=== PATIENT | female | born 2000 | race American Indian/Alaskan Native ===

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

== ENCOUNTER 2018-07-07 08:26 | Inpatient (IN) | payer MEDICAID ==
[2018-07-07] MEDS ORDERED: Carboprost Tromethamine 250 MCG/1 ML Amp IM PRN ×2 (08:46→14:53)
[2018-07-07] MEDS ORDERED: Sodium Chloride 0.9% 10 ML Syringe FLUSH PRN ×2 (08:46→14:53)
[2018-07-07] MEDS ORDERED: Acetaminophen 325 MG Tab PO PRN ×2 (08:46→14:53)
[2018-07-07] MEDS ORDERED: Lactated Ringers 500 ML IV ONE (08:46)
[2018-07-07] MEDS ORDERED: Lidocaine 1% 30 ML SDV INJECT PRN (08:46)
[2018-07-07] MEDS ORDERED: Misoprostol 400 MCG (4 X 100 MCG TAB) RECTAL PRN ×2 (08:46→14:53)
[2018-07-07] MEDS ORDERED: Tranexamic Acid 1,000 MG in Sodium Chloride 0.9% 100 ML IV PRN ×2 (08:46→14:53)
[2018-07-07] MEDS ORDERED: Ondansetron 4 MG/2 ML SDV IV PRN (08:46)
[2018-07-07] MEDS ORDERED: Methylergonovine 0.2 MG/1 ML Amp IM PRN (08:46)
--- NOTE | 2018-07-07 08:54 | PCM.LDHP ---
<Salina Ludwig - Last Filed: 07/07/18 08:57> L&D History of Present Illness - General Date of Service: 07/07/18 Admit Problem/Dx: Patient Status Order with Admit Dx/Problem 07/07/18 08:46 Patient Status [ADT] Routine Admission Diagnosis/Problem Admission Diagnosis/Problem Normal labor Source of Information: Patient - History of Present Illness Introduction:: Ketty is a 18 yo female at 40w3 days today who presents to L& D for regular contractions that started about 6am and are increasing in frequency and strength. Now about 5min apart. Feeling uncomfortable with them, low cramping. Some bloody show last week after her membranes were striped. Denies headache, vision change, LOF. Baby active. - Related Data Allergies/Adverse Reactions: Allergies Allergy/AdvReac Type Severity Reaction Status Date / Time amoxicillin Allergy Hives Verified 05/07/17 15:04 poison angella extract Allergy Cannot Verified 05/07/17 15:04 Remember Home Medications: Home Meds Vit No.129/Iron/FA [ One Daily Tablet] 1 tab PO DAILY 11/28/16 [History] Ferrous Sulfate [Iron] 325 mg PO DAILY 03/09/17 [History] Acetaminophen [Tylenol] 650 mg PO Q6H PRN tablet 05/09/17 [Rx] Docusate Sodium [Colace] 100 mg PO BID PRN cap 05/09/17 [Rx] Ibuprofen [IJD: Ibuprofen] 800 mg PO Q8H PRN tablet 05/09/17 [Rx] Past Medical History - Past Health History Medical/Surgical History: Denies Medical/Surgical History HEENT History: Reports: Impaired Vision Gastrointestinal History: 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 L&D Exam - Exam Exam: See Below - Vital Signs Vital Signs: Temp 97.5 BP122/66 P88 Wt 192 Hght 5'4" - OB Specific Movement: Active Heart Tones per Min: 140 (accels present, no decels) Heart Rate (FHR) Variability: Moderate (6-25 bmp) - Exam General: Alert, Oriented HEENT: Conjunctiva Clear Neck: Supple Lungs: Clear to Auscultation, Normal Respiratory Effort Cardiovascular: Regular Rate, Regular Rhythm, Normal S1, Normal S2 GI/Abdominal Exam: Non-Tender, Other (gravid) Genitourinary: Cervical dilitation (/-[address] Cox's exam) Extremities: Normal Inspection, No Pedal Edema Skin: Warm, Dry. No: Rash - Problem List (1) Normal labor SNOMED Code(s): 21117418 ICD Code: O80 - ENCOUNTER FOR FULL-TERM UNCOMPLICATED DELIVERY; Z37.9 - OUTCOME OF DELIVERY, UNSPECIFIED Status: Acute Current Visit: Yes (2) Term SNOMED Code(s): 65793046 ICD Code: Z34.80 - ENCOUNTER FOR SUPRVSN OF NORMAL , UNSP TRIMESTER Status: Acute Current Visit: Yes Problem List Initiated/Reviewed/Updated: Yes Orders Last 24hrs: Active Orders 24 hr Category Date Time Status Patient Status [ADT] Routine ADT 07/07/18 08:46 Ordered Communication Order [RC] ASDIRECTED Care 07/07/18 08:46 Ordered Heart Tones [RC] PER UNIT ROUTINE Care 07/07/18 08:46 Ordered Notify Provider Vital Signs OB [RC] ASDIRECTED Care 07/07/18 08:46 Ordered Notify Provider [RC] PRN Care 07/07/18 08:46 Ordered Pump Management, Intrathecal [RC] ASDIRECTED Care 07/07/18 08:48 Active Up ad Kelly [RC] ASDIRECTED Care 07/07/18 08:46 Ordered Vital Signs [RC] PER UNIT ROUTINE Care 07/07/18 08:46 Ordered CBC W/O DIFF,HEMOGRAM [HEME] Routine Lab 07/07/18 08:46 Ordered Acetaminophen [Tylenol] Med 07/07/18 08:46 Ordered 650 mg PO Q4H PRN Carboprost Tromethamine [Hemabate DS] Med 07/07/18 08:46 Ordered 250 mcg IM ASDIRECTED PRN Lactated Ringers @ 125 MLS/HR(1000ml) Med 07/07/18 09:00 Ordered Lactated Ringers [Ringers, Lactated] 1,000 ml IV ASDIRECTED Lactated Ringers [Ringers, Lactated] 500 ml Med 07/07/18 08:46 Ordered IV .BOLUS Lidocaine 1% [Xylocaine-MPF 1%] Med 07/07/18 08:46 Ordered 30 ml INJECT ASDIRECTED PRN Methylergonovine [Methergine] Med 07/07/18 08:46 Ordered 0.2 mg IM ASDIRECTED PRN Ondansetron [Zofran] Med 07/07/18 08:46 Ordered 4 mg IV Q4H PRN Oxytocin 30 Units in NS @ 2 MUNITS/MIN(500ml) Med 07/07/18 09:00 Ordered Oxytocin/Normal Saline [Pitocin in NS 30 UNIT/500 ML] 30 unit in 500 ml IV TITRATE Sodium Chloride 0.9% [Saline Flush] Med 07/07/18 08:46 Ordered 10 ml FLUSH ASDIRECTED PRN Tranexamic Acid [Cyklokapron] 1,000 mg Med 07/07/18 08:46 Ordered Sodium Chloride 0.9% [Normal Saline] 100 ml IV ONETIME miSOPROStol [Cytotec] Med 07/07/18 08:46 Ordered 800 mcg RECTAL ASDIRECTED PRN Saline Lock Insert [OM.PC] Routine Oth 07/07/18 08:46 Ordered Resuscitation Status Routine Resus Stat 07/07/18 08:46 Ordered Medication Orders Acetaminophen (Tylenol) 650 mg PO Q4H PRN PRN Reason: Pain (Mild 1-3) and fever Carboprost Tromethamine (Hemabate Ds) 250 mcg IM ASDIRECTED PRN PRN Reason: HEMORRHAGE Lactated Ringer's (Ringers, Lactated) 500 mls @ 999 mls/hr IV .BOLUS ONE Stop: 07/07/18 09:16 Lactated Ringer's (Ringers, Lactated) 1,000 mls @ 125 mls/hr IV ASDIRECTED CHARLIE Oxytocin/Sodium Chloride (Pitocin In Ns 30 Unit/500 Ml) 30 unit in 500 mls @ 2 mls/hr IV TITRATE CHARLIE; Protocol Tranexamic Acid 1,000 mg/ (Sodium Chloride) 110 mls @ 660 mls/hr IV ONETIME PRN PRN Reason: Bleeding Lidocaine HCl (Xylocaine-Mpf 1%) 30 ml INJECT ASDIRECTED PRN PRN Reason: Perineal Repair Methylergonovine Maleate (Methergine) 0.2 mg IM ASDIRECTED PRN PRN Reason: Hemorrhage Misoprostol (Cytotec) 800 mcg RECTAL ASDIRECTED PRN PRN Reason: Hemorrhage Ondansetron HCl (Zofran) 4 mg IV Q4H PRN PRN Reason: Nausea/Vomiting Sodium Chloride (Saline Flush) 10 ml FLUSH ASDIRECTED PRN PRN Reason: Keep Vein Open Assessment/Plan Comment:: Admit to L&D Expectant management may have intrathecal when desired plan to AROM in another hour or two staffed with Dr. Cox <Gayla Cox - Last Filed: 07/07/18 13:16> L&D History of Present Illness - General Admit Problem/Dx: Patient Status Order with Admit Dx/Problem 07/07/18 08:46 Patient Status [ADT] Routine Admission Diagnosis/Problem Admission Diagnosis/Problem Normal labor - Patient Data Lab Results Last 24 hrs: Laboratory Results - last 24 hr 07/07/18 Range/Units 09:05 WBC 13.3 H (5.0-10.0) 10^3/uL RBC 4.76 (4.2-5.4) 10^6/uL Hgb 10.4 L (12.0-16.0) g/dL Hct 32.9 L (37.0-47.0) % MCV 69.1 L D (80-100) fL MCH 21.8 L (27.0-34.0) pg MCHC 31.6 L (33.0-35.0) g/dL Plt Count 259 (150-450) 10^3/uL Result Diagrams: 07/07/18 09:05 Orders Last 24hrs: Active Orders 24 hr Category Date Time Status Patient Status [ADT] Routine ADT 07/07/18 08:46 Active Communication Order [RC] ASDIRECTED Care 07/07/18 08:46 Active Notify Provider Vital Signs OB [RC] ASDIRECTED Care 07/07/18 08:46 Active Notify Provider [RC] PRN Care 07/07/18 08:46 Active PCEA Epidural [RC] ASDIRECTED Care 07/07/18 10:00 Active Pump Management, Intrathecal [RC] ASDIRECTED Care 07/07/18 08:48 Active Up ad Kelly [RC] ASDIRECTED Care 07/07/18 08:46 Active Vital Signs [RC] PER UNIT ROUTINE Care 07/07/18 08:46 Active Acetaminophen [Tylenol] Med 07/07/18 08:46 Active 650 mg PO Q4H PRN Carboprost Tromethamine [Hemabate DS] Med 07/07/18 08:46 Active 250 mcg IM ASDIRECTED PRN Clindamycin Phosphate [Cleocin] 900 mg Med 07/07/18 10:00 Active Sodium Chloride 0.9% [Normal Saline] 100 ml IV Q8H Lactated Ringers [Ringers, Lactated] 1,000 ml Med 07/07/18 09:00 Active IV ASDIRECTED Lidocaine 1% [Xylocaine-MPF 1%] Med 07/07/18 08:46 Active 30 ml INJECT ASDIRECTED PRN Methylergonovine [Methergine] Med 07/07/18 08:46 Active 0.2 mg IM ASDIRECTED PRN Ondansetron [Zofran] Med 07/07/18 08:46 Active 4 mg IV Q4H PRN Oxytocin/Normal Saline [Pitocin in NS 30 UNIT/500 ML] Med 07/07/18 09:00 Active 30 unit in 500 ml IV TITRATE Sodium Chloride 0.9% [Saline Flush] Med 07/07/18 08:46 Active 10 ml FLUSH ASDIRECTED PRN Tranexamic Acid [Cyklokapron] 1,000 mg Med 07/07/18 08:46 Active Sodium Chloride 0.9% [Normal Saline] 100 ml IV ONETIME miSOPROStol [Cytotec] Med 07/07/18 08:46 Active 800 mcg RECTAL ASDIRECTED PRN Saline Lock Insert [OM.PC] Routine Oth 07/07/18 08:46 Ordered Resuscitation Status Routine Resus Stat 07/07/18 08:46 Ordered Medication Orders Acetaminophen (Tylenol) 650 mg PO Q4H PRN PRN Reason: Pain (Mild 1-3) and fever Carboprost Tromethamine (Hemabate Ds) 250 mcg IM ASDIRECTED PRN PRN Reason: HEMORRHAGE Lactated Ringer's (Ringers, Lactated) 1,000 mls @ 125 mls/hr IV ASDIRECTED CHARLIE Last Admin: 07/07/18 09:50 Dose: 125 mls/hr Oxytocin/Sodium Chloride (Pitocin In Ns 30 Unit/500 Ml) 30 unit in 500 mls @ 2 mls/hr IV TITRATE CHARLIE; Protocol Tranexamic Acid 1,000 mg/ (Sodium Chloride) 110 mls @ 660 mls/hr IV ONETIME PRN PRN Reason: Bleeding Clindamycin Phosphate 900 mg/ (Sodium Chloride) 106 mls @ 200 mls/hr IV Q8H [facility] Last Admin: 07/07/18 09:52 Dose: 200 mls/hr Lidocaine HCl (Xylocaine-Mpf 1%) 30 ml INJECT ASDIRECTED PRN PRN Reason: Perineal Repair Methylergonovine Maleate (Methergine) 0.2 mg IM ASDIRECTED PRN PRN Reason: Hemorrhage Misoprostol (Cytotec) 800 mcg RECTAL ASDIRECTED PRN PRN Reason: Hemorrhage Ondansetron HCl (Zofran) 4 mg IV Q4H PRN PRN Reason: Nausea/Vomiting Last Admin: 07/07/18 09:54 Dose: 4 mg Sodium Chloride (Saline Flush) 10 ml FLUSH ASDIRECTED PRN PRN Reason: Keep Vein Open Assessment/Plan Comment:: Agree with resident assessment and plan. Will give Clindamycin for GBS positive status. May AROM 2 hours after dose given. Anticipate . Gayla Cox MD
[2018-07-07] MEDS ORDERED: Oxytocin/Normal Saline 30 UNIT/500 ML BAG IV SCH (09:00)
[2018-07-07] MEDS: Lactated Ringers 1,000 ML IV SCH ×2 (09:50→13:46)
[2018-07-07] MEDS: Clindamycin Phosphate 900 MG in Sodium Chloride 0.9% 100 ML IV SCH ×2 (09:52→19:43)
[2018-07-07] MEDS ORDERED: ePHEDrine 50 MG/ML SDV IVPUSH ONE ×3 (10:00→13:30)
--- NOTE | 2018-07-07 10:24 | PCM.SN ---
- Free Text/Narrative Note: Intrathecal. Sitting position, sterile prep and drape. 1% lidocaine w bicarb for skinwheal to L2 L3 interspace, introducer, 24 ga pencan x 1. Pos CSF, neg heme, neg parasthesia. 15 mcg pf sufenta, 35 mcg pf fentanyl, 0.4 ml pf ns and 6 mg of 0.75 % pf bupivaciane injected after CSF aspiration. Pt to L lateral position. Procedure time 1000 to 1030
[2018-07-07] MEDS ORDERED: ePHEDrine 50 MG/ML SDV ONE (10:50)
--- NOTE | 2018-07-07 11:20 | PCM.SN ---
- Free Text/Narrative Note: 07/07/2018 1118 pt comfortable with intrathecal. no complaints resting comfortably, NAD FHT 140s, moderate variability, accels present, no decels cxn q 3-5 min cervix 6/100/-2, bulging bag 18yo in active labor GBS pos Clindamycin given about 0950 continue current cares Plan to AROM in 1-[address] adilene Ludwig, PGY3
--- NOTE | 2018-07-07 13:06 | PCM.SN ---
- Free Text/Narrative Note: Labor Progress note 07/07/18 1302 starting to feel cxns a bit more. no other complaints FHT category 1 cervix prior to AROM 7/100/-2 After AROM 8cm/100/-1 AROM for moderate amount of clear fluid. No complications. Baby tolerated procedure well. Staffed with Dr. Kenny Ludwig, PGY3
[2018-07-07] MEDS ORDERED: Benzocaine/Menthol 20%-0.5% Spray 56 GM Canister TOP PRN (14:53)
[2018-07-07] MEDS ORDERED: Oxytocin 10 Units/1 ML SDV IM PRN (14:53)
[2018-07-07] MEDS ORDERED: Simethicone 80 MG Tab.Chew PO PRN (14:53)
[2018-07-07] MEDS ORDERED: Zolpidem 5 MG Tab PO PRN (14:53)
[2018-07-07] MEDS ORDERED: Ketorolac 30 MG/ML SDV IVPUSH ONE (14:53)
--- NOTE | 2018-07-07 15:04 | PCM.DEL ---
<Salina Ludwig - Last Filed: 07/07/18 14:58> L & D Note - General Info Date of Service: 07/07/18 - Delivery Note Labor: Spontaneous, Augmented by ARM Delivery Outcome: Livebirth Delivery Method: Spontaneous Vaginal Delivery-Single Infant Delivery Mode: Spontaneous Presentation: Right Occiput Anterior (TUTU) Nuchal Cord: None Anesthesia Type: Intrathecal Amniotic Fluid Description: Clear Episiotomy Type: None Laceration: Periurethral (left not repaired) Placenta: Intact, Spontaneous Resuscitation Needed: No : Suctioned Score 1 min: 8 Score 5 min: 9 Delivery Comments (Free Text/Narrative):: patient presented in active labor. Received Clindamycin for GBS pos. Augmented by AROM. Progressed to complete without complication. head delivered spontaneously. No cord complications. Body delivered without incident. Baby vigorous to mom's chest. Placenta spontaneous and intact. left periurethral laceration not repaired. No perineal lacerations. good hemostasis. - General Info Date of Service: 07/07/18 - Patient Data Vitals - Most Recent: Last Vital Signs Temp 97.5 F 07/07/18 08:45 Pulse 88 07/07/18 08:45 Resp 16 07/07/18 08:45 BP 122/66 07/07/18 08:45 Pulse Ox Weight - Most Recent: 87.09 kg I&O - Last 24 Hours: Intake & Output 07/06/18 07/07/18 07/07/18 22:59 06:59 14:59 Intake Total 2100 Balance 2100 Lab Results Last 24 Hours: Laboratory Results - last 24 hr 07/07/18 Range/Units 09:05 WBC 13.3 H (5.0-10.0) 10^3/uL RBC 4.76 (4.2-5.4) 10^6/uL Hgb 10.4 L (12.0-16.0) g/dL Hct 32.9 L (37.0-47.0) % MCV 69.1 L D (80-100) fL MCH 21.8 L (27.0-34.0) pg MCHC 31.6 L (33.0-35.0) g/dL Plt Count 259 (150-450) 10^3/uL Med Orders - Current: Current Medications Acetaminophen (Tylenol) 650 mg PO Q4H PRN PRN Reason: Pain (Mild 1-3) and fever Acetaminophen (Tylenol) 650 mg PO Q6H PRN PRN Reason: mild pain or fever Benzocaine/Menthol (Dermoplast Pain Relief [place]) 0 gm TOP Q4H PRN PRN Reason: Perineal comfort measures Carboprost Tromethamine (Hemabate Ds) 250 mcg IM ASDIRECTED PRN PRN Reason: HEMORRHAGE Carboprost Tromethamine (Hemabate Ds) 250 mcg IM ASDIRECTED PRN PRN Reason: Excessive vaginal bleeding Docusate Sodium (Colace) 100 mg PO BID PRN PRN Reason: Constipation Lactated Ringer's (Ringers, Lactated) 1,000 mls @ 125 mls/hr IV ASDIRECTED [facility] Last Admin: 07/07/18 13:46 Dose: 125 mls/hr Oxytocin/Sodium Chloride (Pitocin In Ns 30 Unit/500 Ml) 30 unit in 500 mls @ 2 mls/hr IV TITRATE CHARLIE; Protocol Tranexamic Acid 1,000 mg/ (Sodium Chloride) 110 mls @ 660 mls/hr IV ONETIME PRN PRN Reason: Bleeding Clindamycin Phosphate 900 mg/ (Sodium Chloride) 106 mls @ 200 mls/hr IV Q8H [facility] Last Admin: 07/07/18 09:52 Dose: 200 mls/hr Tranexamic Acid 1,000 mg/ (Sodium Chloride) 110 mls @ 660 mls/hr IV ONETIME PRN PRN Reason: Bleeding Ibuprofen (Motrin) 800 mg PO Q8H PRN PRN Reason: Mild Pain or Fever Ketorolac Tromethamine (Toradol) 30 mg IVPUSH ONETIME ONE Stop: 07/07/18 14:54 Lidocaine HCl (Xylocaine-Mpf 1%) 30 ml INJECT ASDIRECTED PRN PRN Reason: Perineal Repair Methylergonovine Maleate (Methergine) 0.2 mg IM ASDIRECTED PRN PRN Reason: Hemorrhage Misoprostol (Cytotec) 800 mcg RECTAL ASDIRECTED PRN PRN Reason: Hemorrhage Misoprostol (Cytotec) 800 mcg RECTAL ONETIME PRN PRN Reason: Hemorrhage Ondansetron HCl (Zofran) 4 mg IV Q4H PRN PRN Reason: Nausea/Vomiting Last Admin: 07/07/18 09:54 Dose: 4 mg Oxytocin (Pitocin) 10 unit IM ONETIME PRN PRN Reason: Bleeding Prenat Multivit/[place]/Iron/Folic Ac ( Plus Iron) 1 each PO DAILY CHARLIE Simethicone (Simethicone) 80 mg PO Q4H PRN PRN Reason: Gas Sodium Chloride (Saline Flush) 10 ml FLUSH ASDIRECTED PRN PRN Reason: Keep Vein Open Sodium Chloride (Saline Flush) 10 ml FLUSH ASDIRECTED PRN PRN Reason: Keep Vein Open Zolpidem Tartrate (Ambien) 5 mg PO BEDTIME PRN PRN Reason: Insomnia Discontinued Medications Ephedrine Sulfate (Ephedrine Sulfate) Confirm Administered Dose 50 mg .ROUTE .STK-MED ONE Stop: 07/07/18 10:51 Ephedrine Sulfate (Ephedrine Sulfate) 100 mg IVPUSH ONETIME ONE Stop: 07/07/18 11:18 Ephedrine Sulfate (Ephedrine Sulfate) 10 mg IVPUSH ONETIME ONE Stop: 07/07/18 10:01 Last Admin: 07/07/18 10:57 Dose: 10 mg Ephedrine Sulfate (Ephedrine Sulfate) 10 mg IVPUSH ONETIME ONE Stop: 07/07/18 13:31 Lactated Ringer's (Ringers, Lactated) 500 mls @ 999 mls/hr IV .BOLUS ONE Stop: 07/07/18 09:16 Last Admin: 07/07/18 09:15 Dose: 999 mls/hr - Problem List & Annotations (1) Normal labor SNOMED Code(s): 70178227 Code(s): O80 - ENCOUNTER FOR FULL-TERM UNCOMPLICATED DELIVERY; Z37.9 - OUTCOME OF DELIVERY, UNSPECIFIED Status: Resolved (2) Term SNOMED Code(s): 87373327 Code(s): Z34.80 - ENCOUNTER FOR SUPRVSN OF NORMAL , UNSP TRIMESTER Status: Resolved (3) (normal spontaneous vaginal delivery) SNOMED Code(s): 52859001 Code(s): O80 - ENCOUNTER FOR FULL-TERM UNCOMPLICATED DELIVERY Status: Acute - Problem List Review Problem List Initiated/Reviewed/Updated: Yes - My Orders Last 24 Hours: My Active Orders 07/07/18 08:46 Patient Status [ADT] Routine Communication Order [RC] ASDIRECTED Notify Provider Vital Signs OB [RC] ASDIRECTED Notify Provider [RC] PRN Up ad Kelly [RC] ASDIRECTED Vital Signs [RC] PER UNIT ROUTINE Acetaminophen [Tylenol] 650 mg PO Q4H PRN Carboprost Tromethamine [Hemabate DS] 250 mcg IM ASDIRECTED PRN Lidocaine 1% [Xylocaine-MPF 1%] 30 ml INJECT ASDIRECTED PRN Methylergonovine [Methergine] 0.2 mg IM ASDIRECTED PRN Ondansetron [Zofran] 4 mg IV Q4H PRN Sodium Chloride 0.9% [Saline Flush] 10 ml FLUSH ASDIRECTED PRN Tranexamic Acid [Cyklokapron] 1,000 mg Sodium Chloride 0.9% [Normal Saline] 100 ml IV ONETIME miSOPROStol [Cytotec] 800 mcg RECTAL ASDIRECTED PRN Saline Lock Insert [OM.PC] Routine 07/07/18 08:48 Pump Management, Intrathecal [RC] ASDIRECTED 07/07/18 09:00 Lactated Ringers [Ringers, Lactated] 1,000 ml IV ASDIRECTED Oxytocin/Normal Saline [Pitocin in NS 30 UNIT/500 ML] 30 unit in 500 ml IV TITRATE 07/07/18 10:00 Clindamycin Phosphate [Cleocin] 900 mg Sodium Chloride 0.9% [Normal Saline] 100 ml IV Q8H 07/07/18 14:53 Acetaminophen [Tylenol] 650 mg PO Q6H PRN Benzocaine/Menthol [Dermoplast Pain Relief [place]] See Dose Instructions TOP Q4H PRN Carboprost Tromethamine [Hemabate DS] 250 mcg IM ASDIRECTED PRN Docusate Sodium [Colace] 100 mg PO BID PRN Ibuprofen [Motrin] 800 mg PO Q8H PRN Ketorolac [Toradol] 30 mg IVPUSH ONETIME ONE Oxytocin [Pitocin] 10 unit IM ONETIME PRN Simethicone 80 mg PO Q4H PRN Sodium Chloride 0.9% [Saline Flush] 10 ml FLUSH ASDIRECTED PRN Tranexamic Acid [Cyklokapron] 1,000 mg Sodium Chloride 0.9% [Normal Saline] 100 ml IV ONETIME Zolpidem [Ambien] 5 mg PO BEDTIME PRN miSOPROStol [Cytotec] 800 mcg RECTAL ONETIME PRN Resuscitation Status Routine 07/07/18 14:54 Notify Provider Vital Signs OB [RC] ASDIRECTED Up ad Kelly [RC] ASDIRECTED Assess Lochia [WOMSER] Per Unit Routine Assess Uterine Involution [WOMSER] Per Unit Routine Breast Pump [WOMSER] Per Unit Routine Ice Therapy [OM.PC] Per Unit Routine Perineal Care [OM.PC] Per Unit Routine Saline Lock Insert [OM.PC] Urgent Sitz Bath [OM.PC] Per Unit Routine 07/07/18 14:55 Vital Signs [RC] PFP 07/08/18 09:00 Vit with Ca/FA/Iron [ Plus Iron] 1 each PO DAILY - Plan Plan:: routine post cares <Gayla Cox - Last Filed: 07/10/18 14:14> - Patient Data Vitals - Most Recent: Last Vital Signs Temp 37.2 C 07/09/18 08:00 Pulse 70 07/09/18 08:00 Resp 16 07/09/18 08:00 BP 109/57 L 07/09/18 08:00 Pulse Ox 99 07/08/18 07:56 Med Orders - Current: Current Medications Discontinued Medications Acetaminophen (Tylenol) 650 mg PO Q4H PRN PRN Reason: Pain (Mild 1-3) and fever Last Admin: 07/07/18 20:50 Dose: 650 mg Acetaminophen (Tylenol) 650 mg PO Q6H PRN PRN Reason: mild pain or fever Last Admin: 07/08/18 03:35 Dose: 650 mg Benzocaine/Menthol (Dermoplast Pain Relief [place]) 0 gm TOP Q4H PRN PRN Reason: Perineal comfort measures Last Admin: 07/07/18 20:49 Dose: 1 spray Carboprost Tromethamine (Hemabate Ds) 250 mcg IM ASDIRECTED PRN PRN Reason: HEMORRHAGE Carboprost Tromethamine (Hemabate Ds) 250 mcg IM ASDIRECTED PRN PRN Reason: Excessive vaginal bleeding Docusate Sodium (Colace) 100 mg PO BID PRN PRN Reason: Constipation Last Admin: 07/09/18 08:51 Dose: 100 mg Ephedrine Sulfate (Ephedrine Sulfate) Confirm Administered Dose 50 mg .ROUTE .STK-MED ONE Stop: 07/07/18 10:51 Last Admin: 07/07/18 19:40 Dose: Not Given Ephedrine Sulfate (Ephedrine Sulfate) 100 mg IVPUSH ONETIME ONE Stop: 07/07/18 11:18 Last Admin: 07/07/18 19:41 Dose: Not Given Ephedrine Sulfate (Ephedrine Sulfate) 10 mg IVPUSH ONETIME ONE Stop: 07/07/18 10:01 Last Admin: 07/07/18 10:57 Dose: 10 mg Ephedrine Sulfate (Ephedrine Sulfate) 10 mg IVPUSH ONETIME ONE Stop: 07/07/18 13:31 Last Admin: 07/07/18 13:30 Dose: 10 mg Lactated Ringer's (Ringers, Lactated) 500 mls @ 999 mls/hr IV .BOLUS ONE Stop: 07/07/18 09:16 Last Admin: 07/07/18 09:15 Dose: 999 mls/hr Lactated Ringer's (Ringers, Lactated) 1,000 mls @ 125 mls/hr IV ASDIRECTED CHARLIE Last Admin: 07/07/18 13:46 Dose: 125 mls/hr Oxytocin/Sodium Chloride (Pitocin In Ns 30 Unit/500 Ml) 30 unit in 500 mls @ 2 mls/hr IV TITRATE CHARLIE; Protocol Last Titration: 07/07/18 18:15 Dose: 0 munits/min, 0 mls/hr Tranexamic Acid 1,000 mg/ (Sodium Chloride) 110 mls @ 660 mls/hr IV ONETIME PRN PRN Reason: Bleeding Clindamycin Phosphate 900 mg/ (Sodium Chloride) 106 mls @ 200 mls/hr IV Q8H CHARLIE Last Admin: 07/07/18 19:43 Dose: Not Given Tranexamic Acid 1,000 mg/ (Sodium Chloride) 110 mls @ 660 mls/hr IV ONETIME PRN PRN Reason: Bleeding Ibuprofen (Motrin) 800 mg PO Q8H PRN PRN Reason: Mild Pain or Fever Last Admin: 07/09/18 08:51 Dose: 800 mg Ketorolac Tromethamine (Toradol) 30 mg IVPUSH ONETIME ONE Stop: 07/07/18 14:54 Last Admin: 07/07/18 19:42 Dose: Not Given Lidocaine HCl (Xylocaine-Mpf 1%) 30 ml INJECT ASDIRECTED PRN PRN Reason: Perineal Repair Methylergonovine Maleate (Methergine) 0.2 mg IM ASDIRECTED PRN PRN Reason: Hemorrhage Misoprostol (Cytotec) 800 mcg RECTAL ASDIRECTED PRN PRN Reason: Hemorrhage Misoprostol (Cytotec) 800 mcg RECTAL ONETIME PRN PRN Reason: Hemorrhage Ondansetron HCl (Zofran) 4 mg IV Q4H PRN PRN Reason: Nausea/Vomiting Last Admin: 07/07/18 09:54 Dose: 4 mg Oxytocin (Pitocin) 10 unit IM ONETIME PRN PRN Reason: Bleeding Prenat Multivit/[place]/Iron/Folic Ac ( Plus Iron) 1 each PO DAILY CHARLIE Last Admin: 07/09/18 08:52 Dose: 1 each Simethicone (Simethicone) 80 mg PO Q4H PRN PRN Reason: Gas Sodium Chloride (Saline Flush) 10 ml FLUSH ASDIRECTED PRN PRN Reason: Keep Vein Open Sodium Chloride (Saline Flush) 10 ml FLUSH ASDIRECTED PRN PRN Reason: Keep Vein Open Zolpidem Tartrate (Ambien) 5 mg PO BEDTIME PRN PRN Reason: Insomnia - Plan Plan:: Agree with resident assessment and plan. There were no immediate complications , and patient tolerated the procedure well. Gayla Cox MD
[2018-07-07] MEDS: Docusate Sodium 100 MG Cap PO PRN (20:49)
[2018-07-07] MEDS: Ibuprofen 800 MG Tab PO PRN (21:39)
[2018-07-08] MEDS: Ibuprofen 800 MG Tab PO PRN ×2 (06:08→23:38)
[2018-07-08] MEDS: Docusate Sodium 100 MG Cap PO PRN ×2 (09:56→23:38)
[2018-07-08] MEDS: Prenatal Multivitamin with Calcium/Folic Acid/Iron Tab PO SCH (09:56)
--- NOTE | 2018-07-08 10:22 | PCM.PNPP ---
- General Info Date of Service: 07/08/18 Subjective Update: Ketty is a 18 yo G2 now P2 F s/p at 40 3/7 weeks. Doing well this morning. Pain well controlled. Lochia mild. Ambulating. Urinating without difficulty. Passing gas. No concerns. Denies h/a, vision change, calf pain. Functional Status: Reports: Pain Controlled - Review of Systems Systems Review Comment:: ROS performed and negative except per HPI - General Info Date of Service: 07/08/18 - Patient Data Vital Signs - Most Recent: Last Vital Signs Temp 97.9 F 07/08/18 07:56 Pulse 55 L 07/08/18 07:56 Resp 16 07/08/18 07:56 BP 105/45 L 07/08/18 07:56 Pulse Ox 99 07/08/18 07:56 Weight - Most Recent: 192 lb I&O - Last 24 Hours: Intake & Output 07/07/18 07/08/18 07/08/18 22:59 06:59 14:59 Intake Total 1000 Output Total 1000 Balance 0 Med Orders - Current: Current Medications Acetaminophen (Tylenol) 650 mg PO Q4H PRN PRN Reason: Pain (Mild 1-3) and fever Last Admin: 07/07/18 20:50 Dose: 650 mg Acetaminophen (Tylenol) 650 mg PO Q6H PRN PRN Reason: mild pain or fever Last Admin: 07/08/18 03:35 Dose: 650 mg Benzocaine/Menthol (Dermoplast Pain Relief [place]) 0 gm TOP Q4H PRN PRN Reason: Perineal comfort measures Last Admin: 07/07/18 20:49 Dose: 1 spray Carboprost Tromethamine (Hemabate Ds) 250 mcg IM ASDIRECTED PRN PRN Reason: HEMORRHAGE Carboprost Tromethamine (Hemabate Ds) 250 mcg IM ASDIRECTED PRN PRN Reason: Excessive vaginal bleeding Docusate Sodium (Colace) 100 mg PO BID PRN PRN Reason: Constipation Last Admin: 07/08/18 09:56 Dose: 100 mg Lactated Ringer's (Ringers, Lactated) 1,000 mls @ 125 mls/hr IV ASDIRECTED CHARLIE Last Admin: 07/07/18 13:46 Dose: 125 mls/hr Oxytocin/Sodium Chloride (Pitocin In Ns 30 Unit/500 Ml) 30 unit in 500 mls @ 2 mls/hr IV TITRATE CHARLIE; Protocol Last Titration: 07/07/18 18:15 Dose: 0 munits/min, 0 mls/hr Tranexamic Acid 1,000 mg/ (Sodium Chloride) 110 mls @ 660 mls/hr IV ONETIME PRN PRN Reason: Bleeding Tranexamic Acid 1,000 mg/ (Sodium Chloride) 110 mls @ 660 mls/hr IV ONETIME PRN PRN Reason: Bleeding Ibuprofen (Motrin) 800 mg PO Q8H PRN PRN Reason: Mild Pain or Fever Last Admin: 07/08/18 06:08 Dose: 800 mg Lidocaine HCl (Xylocaine-Mpf 1%) 30 ml INJECT ASDIRECTED PRN PRN Reason: Perineal Repair Methylergonovine Maleate (Methergine) 0.2 mg IM ASDIRECTED PRN PRN Reason: Hemorrhage Misoprostol (Cytotec) 800 mcg RECTAL ASDIRECTED PRN PRN Reason: Hemorrhage Misoprostol (Cytotec) 800 mcg RECTAL ONETIME PRN PRN Reason: Hemorrhage Ondansetron HCl (Zofran) 4 mg IV Q4H PRN PRN Reason: Nausea/Vomiting Last Admin: 07/07/18 09:54 Dose: 4 mg Oxytocin (Pitocin) 10 unit IM ONETIME PRN PRN Reason: Bleeding Prenat Multivit/[employer] [place]/Iron/Folic Ac ( Plus Iron) 1 each PO DAILY CHARLIE Last Admin: 07/08/18 09:56 Dose: 1 each Simethicone (Simethicone) 80 mg PO Q4H PRN PRN Reason: Gas Sodium Chloride (Saline Flush) 10 ml FLUSH ASDIRECTED PRN PRN Reason: Keep Vein Open Sodium Chloride (Saline Flush) 10 ml FLUSH ASDIRECTED PRN PRN Reason: Keep Vein Open Zolpidem Tartrate (Ambien) 5 mg PO BEDTIME PRN PRN Reason: Insomnia Discontinued Medications Ephedrine Sulfate (Ephedrine Sulfate) Confirm Administered Dose 50 mg .ROUTE .STK-MED ONE Stop: 07/07/18 10:51 Last Admin: 07/07/18 19:40 Dose: Not Given Ephedrine Sulfate (Ephedrine Sulfate) 100 mg IVPUSH ONETIME ONE Stop: 07/07/18 11:18 Last Admin: 07/07/18 19:41 Dose: Not Given Ephedrine Sulfate (Ephedrine Sulfate) 10 mg IVPUSH ONETIME ONE Stop: 07/07/18 10:01 Last Admin: 07/07/18 10:57 Dose: 10 mg Ephedrine Sulfate (Ephedrine Sulfate) 10 mg IVPUSH ONETIME ONE Stop: 07/07/18 13:31 Last Admin: 07/07/18 13:30 Dose: 10 mg Lactated Ringer's (Ringers, Lactated) 500 mls @ 999 mls/hr IV .BOLUS ONE Stop: 07/07/18 09:16 Last Admin: 07/07/18 09:15 Dose: 999 mls/hr Clindamycin Phosphate 900 mg/ (Sodium Chloride) 106 mls @ 200 mls/hr IV Q8H CHARLIE Last Admin: 07/07/18 19:43 Dose: Not Given Ketorolac Tromethamine (Toradol) 30 mg IVPUSH ONETIME ONE Stop: 07/07/18 14:54 Last Admin: 07/07/18 19:42 Dose: Not Given - Interaction Disposition, : [place] at Bedside Interaction: Holding Infant Infant Feeding: Breastfed Infant; Nursed Well, Continues to Breastfeed Support Person: Significant Other - Recovery Exam Fundal Tone: Firm Fundal Level: 1 Fingerbreadths Below Umbilicus Fundal Placement: Midline Lochia Amount: Small Lochia Color: Rubra/Red Perineum Description: Intact, Minimal Bruising/Swelling Episiotomy/Laceration: None Bladder Status: Voiding Urinary Elimination: Voided - Exam General: Alert, Oriented, No Acute Distress Neck: Supple Lungs: Clear to Auscultation, Normal Respiratory Effort Cardiovascular: Regular Rate, Regular Rhythm, No Murmurs GI/Abdominal Exam: Soft, Tender (appropriately) Extremities: Normal Inspection, Non-Tender, No Pedal Edema Skin: Warm, Dry Psy/Mental Status: Alert, Normal Affect, Normal Mood - Problem List & Annotations (1) Normal labor SNOMED Code(s): 95943469 Code(s): O80 - ENCOUNTER FOR FULL-TERM UNCOMPLICATED DELIVERY; Z37.9 - OUTCOME OF DELIVERY, UNSPECIFIED Status: Resolved Current Visit: Yes (2) Term SNOMED Code(s): 92714987 Code(s): Z34.80 - ENCOUNTER FOR SUPRVSN OF NORMAL , UNSP TRIMESTER Status: Resolved Current Visit: Yes (3) (normal spontaneous vaginal delivery) SNOMED Code(s): 04046151 Code(s): O80 - ENCOUNTER FOR FULL-TERM UNCOMPLICATED DELIVERY Status: Acute Current Visit: Yes - Problem List Review Problem List Initiated/Reviewed/Updated: Yes - My Orders Last 24 Hours: My Active Orders 07/07/18 14:53 Acetaminophen [Tylenol] 650 mg PO Q6H PRN Benzocaine/Menthol [Dermoplast Pain Relief [place]] See Dose Instructions TOP Q4H PRN Carboprost Tromethamine [Hemabate DS] 250 mcg IM ASDIRECTED PRN Docusate Sodium [Colace] 100 mg PO BID PRN Oxytocin [Pitocin] 10 unit IM ONETIME PRN Simethicone 80 mg PO Q4H PRN Sodium Chloride 0.9% [Saline Flush] 10 ml FLUSH ASDIRECTED PRN Tranexamic Acid [Cyklokapron] 1,000 mg Sodium Chloride 0.9% [Normal Saline] 100 ml IV ONETIME Zolpidem [Ambien] 5 mg PO BEDTIME PRN miSOPROStol [Cytotec] 800 mcg RECTAL ONETIME PRN Resuscitation Status Routine 07/07/18 14:54 Notify Provider Vital Signs OB [RC] ASDIRECTED Up ad Kelly [RC] ASDIRECTED Assess Lochia [WOMSER] Per Unit Routine Assess Uterine Involution [WOMSER] Per Unit Routine Breast Pump [WOMSER] Per Unit Routine Ice Therapy [OM.PC] Per Unit Routine Perineal Care [OM.PC] Per Unit Routine Saline Lock Insert [OM.PC] Urgent Sitz Bath [OM.PC] Per Unit Routine 07/07/18 14:55 Vital Signs [RC] 08,07/07/18 23:00 Ibuprofen [Motrin] 800 mg PO Q8H PRN 07/08/18 09:00 Vit with Ca/FA/Iron [ Plus Iron] 1 each PO DAILY - Assessment Assessment:: 18 yo F s/p at 40 3/7 weeks. No sx of anemia. - Plan Plan:: routine post cares. Anticipate discharge tomorrow. Staffed with Dr. Berrios. Salina Ludwig, PGY3
--- NOTE | 2018-07-08 11:04 | PN ---
DATE: 07/08/2018 SUBJECTIVE: The patient is day 1 from a vaginal delivery with inadequately treated GBS. Mom and baby are both doing well. Lochia is minimal. OBJECTIVE: Vital Signs: On physical exam, the patient is afebrile. Heart rate 55, blood pressure 105/45, respiratory rate 16, and O2 sat 99%. The patient is O positive. Rubella immune. Fundus is firm below the umbilicus. Extremities: No tenderness. No edema. LABORATORY DATA: Pre-delivery hemoglobin was 10.4. ASSESSMENT AND PLAN: day 1, status post vaginal delivery. Mom and baby are both doing well. We will continue care and likely discharge tomorrow. [facility] /[id number]
[2018-07-09] MEDS: Ibuprofen 800 MG Tab PO PRN (08:51)
[2018-07-09] MEDS: Docusate Sodium 100 MG Cap PO PRN (08:51)
[2018-07-09] MEDS: Prenatal Multivitamin with Calcium/Folic Acid/Iron Tab PO SCH (08:52)
[2018-07-09 09:19] VITALS: BP 109/57
--- NOTE | 2018-07-09 10:10 | PCM.PNPP ---
- General Info Date of Service: 07/09/18 Subjective Update: Ketty is a 18 yo G2 now P2 F PPD2 s/p at 40 3/7 weeks. Doing well this morning. Pain well controlled. Lochia mild. Ambulating. Urinating without difficulty. Passing gas. No concerns. Denies h/a, vision change, calf pain. - Review of Systems Systems Review Comment:: ROS performed and negative except per HPI - General Info Date of Service: 07/09/18 - Patient Data Vital Signs - Most Recent: Last Vital Signs Temp 98.9 F 07/09/18 08:00 Pulse 70 07/09/18 08:00 Resp 16 07/09/18 08:00 BP 109/57 L 07/09/18 08:00 Pulse Ox 99 07/08/18 07:56 Weight - Most Recent: 192 lb Med Orders - Current: Current Medications Acetaminophen (Tylenol) 650 mg PO Q4H PRN PRN Reason: Pain (Mild 1-3) and fever Last Admin: 07/07/18 20:50 Dose: 650 mg Acetaminophen (Tylenol) 650 mg PO Q6H PRN PRN Reason: mild pain or fever Last Admin: 07/08/18 03:35 Dose: 650 mg Benzocaine/Menthol (Dermoplast Pain Relief [place]) 0 gm TOP Q4H PRN PRN Reason: Perineal comfort measures Last Admin: 07/07/18 20:49 Dose: 1 spray Carboprost Tromethamine (Hemabate Ds) 250 mcg IM ASDIRECTED PRN PRN Reason: HEMORRHAGE Carboprost Tromethamine (Hemabate Ds) 250 mcg IM ASDIRECTED PRN PRN Reason: Excessive vaginal bleeding Docusate Sodium (Colace) 100 mg PO BID PRN PRN Reason: Constipation Last Admin: 07/09/18 08:51 Dose: 100 mg Lactated Ringer's (Ringers, Lactated) 1,000 mls @ 125 mls/hr IV ASDIRECTED CHARLIE Last Admin: 07/07/18 13:46 Dose: 125 mls/hr Oxytocin/Sodium Chloride (Pitocin In Ns 30 Unit/500 Ml) 30 unit in 500 mls @ 2 mls/hr IV TITRATE CHARLIE; Protocol Last Titration: 07/07/18 18:15 Dose: 0 munits/min, 0 mls/hr Tranexamic Acid 1,000 mg/ (Sodium Chloride) 110 mls @ 660 mls/hr IV ONETIME PRN PRN Reason: Bleeding Tranexamic Acid 1,000 mg/ (Sodium Chloride) 110 mls @ 660 mls/hr IV ONETIME PRN PRN Reason: Bleeding Ibuprofen (Motrin) 800 mg PO Q8H PRN PRN Reason: Mild Pain or Fever Last Admin: 07/09/18 08:51 Dose: 800 mg Lidocaine HCl (Xylocaine-Mpf 1%) 30 ml INJECT ASDIRECTED PRN PRN Reason: Perineal Repair Methylergonovine Maleate (Methergine) 0.2 mg IM ASDIRECTED PRN PRN Reason: Hemorrhage Misoprostol (Cytotec) 800 mcg RECTAL ASDIRECTED PRN PRN Reason: Hemorrhage Misoprostol (Cytotec) 800 mcg RECTAL ONETIME PRN PRN Reason: Hemorrhage Ondansetron HCl (Zofran) 4 mg IV Q4H PRN PRN Reason: Nausea/Vomiting Last Admin: 07/07/18 09:54 Dose: 4 mg Oxytocin (Pitocin) 10 unit IM ONETIME PRN PRN Reason: Bleeding Prenat Multivit/[place]/Iron/Folic Ac ( Plus Iron) 1 each PO DAILY CHARLIE Last Admin: 07/09/18 08:52 Dose: 1 each Simethicone (Simethicone) 80 mg PO Q4H PRN PRN Reason: Gas Sodium Chloride (Saline Flush) 10 ml FLUSH ASDIRECTED PRN PRN Reason: Keep Vein Open Sodium Chloride (Saline Flush) 10 ml FLUSH ASDIRECTED PRN PRN Reason: Keep Vein Open Zolpidem Tartrate (Ambien) 5 mg PO BEDTIME PRN PRN Reason: Insomnia Discontinued Medications Ephedrine Sulfate (Ephedrine Sulfate) Confirm Administered Dose 50 mg .ROUTE .STK-MED ONE Stop: 07/07/18 10:51 Last Admin: 07/07/18 19:40 Dose: Not Given Ephedrine Sulfate (Ephedrine Sulfate) 100 mg IVPUSH ONETIME ONE Stop: 07/07/18 11:18 Last Admin: 07/07/18 19:41 Dose: Not Given Ephedrine Sulfate (Ephedrine Sulfate) 10 mg IVPUSH ONETIME ONE Stop: 07/07/18 10:01 Last Admin: 07/07/18 10:57 Dose: 10 mg Ephedrine Sulfate (Ephedrine Sulfate) 10 mg IVPUSH ONETIME ONE Stop: 07/07/18 13:31 Last Admin: 07/07/18 13:30 Dose: 10 mg Lactated Ringer's (Ringers, Lactated) 500 mls @ 999 mls/hr IV .BOLUS ONE Stop: 07/07/18 09:16 Last Admin: 07/07/18 09:15 Dose: 999 mls/hr Clindamycin Phosphate 900 mg/ (Sodium Chloride) 106 mls @ 200 mls/hr IV Q8H CHARLIE Last Admin: 07/07/18 19:43 Dose: Not Given Ketorolac Tromethamine (Toradol) 30 mg IVPUSH ONETIME ONE Stop: 07/07/18 14:54 Last Admin: 07/07/18 19:42 Dose: Not Given - Interaction Disposition, : [place] at Bedside Infant Interaction: Holding Feeding: Breastfed Infant; Nursed Well, Continues to Breastfeed Support Person: Significant Other - Recovery Exam Fundal Tone: Firm Fundal Level: 3 Fingerbreadths Below Umbilicus Fundal Placement: Midline Lochia Amount: Small Lochia Color: Rubra/Red Perineum Description: Intact, Minimal Bruising/Swelling Episiotomy/Laceration: None Bladder Status: Nonpalpable, Voiding Urinary Elimination: Voided - Exam General: Alert, Oriented Neck: Supple Lungs: Clear to Auscultation, Normal Respiratory Effort. No: Crackles, Rales, Wheezing Cardiovascular: Regular Rate, Regular Rhythm, No Murmurs GI/Abdominal Exam: Normal Bowel Sounds, Soft, Tender (appropriately) Extremities: Non-Tender, No Pedal Edema Skin: Warm, Dry. No: Rash Psy/Mental Status: Alert, Normal Mood - Problem List & Annotations (1) Normal labor SNOMED Code(s): 68377203 Code(s): O80 - ENCOUNTER FOR FULL-TERM UNCOMPLICATED DELIVERY; Z37.9 - OUTCOME OF DELIVERY, UNSPECIFIED Status: Resolved Current Visit: Yes (2) Term SNOMED Code(s): 78953585 Code(s): Z34.80 - ENCOUNTER FOR SUPRVSN OF NORMAL , UNSP TRIMESTER Status: Resolved Current Visit: Yes (3) (normal spontaneous vaginal delivery) SNOMED Code(s): 89749521 Code(s): O80 - ENCOUNTER FOR FULL-TERM UNCOMPLICATED DELIVERY Status: Acute Current Visit: Yes - Problem List Review Problem List Initiated/Reviewed/Updated: Yes - Assessment Assessment:: 18 yo F PPD2 s/p at 40 3/7 weeks. No sx of anemia. - Plan Plan:: routine post cares. Anticipate discharge today Staffed with Dr. Berrios. Salina Ludwig, PGY3
[2018-07-09] MEDS ORDERED: fentaNYL 100 MCG/2 ML SDV ITHECAL ONE (12:49)
--- NOTE | 2018-07-09 14:20 | PCM.DCSUM1 ---
Discharge Summary - Hospital Course Free Text/Narrative:: Ketty is a 18 yo G2 now P2 female PPD2 s/p without complication at 40 3/ 7 weeks. Post course was uncomplicated. At discharge she was ambulating, tolerating general diet, voiding spontaneously and passing gas. Denies h/a, vision change, calf tenderness. Breast feeding and going well. Baby doing well. No concerns. - Discharge Data Discharge Date: 07/09/18 Discharge Disposition: Home, Self-Care 01 Condition: Good - Discharge Diagnosis/Problem(s) (1) Normal labor SNOMED Code(s): 35474207 ICD Code: O80 - ENCOUNTER FOR FULL-TERM UNCOMPLICATED DELIVERY; Z37.9 - OUTCOME OF DELIVERY, UNSPECIFIED Status: Resolved (2) Term SNOMED Code(s): 11696617 ICD Code: Z34.80 - ENCOUNTER FOR SUPRVSN OF NORMAL , UNSP TRIMESTER Status: Resolved (3) (normal spontaneous vaginal delivery) SNOMED Code(s): 34387734 ICD Code: O80 - ENCOUNTER FOR FULL-TERM UNCOMPLICATED DELIVERY Status: Acute - Patient Instructions Diet: Regular Diet as Tolerated, Drink 8-10+ Glasses/Day Activity: As Tolerated Driving: May Drive Today Showering/Bathing: May Shower Notify Provider of: Fever, Increased Pain, Nausea and/or Vomiting - Discharge Plan *PRESCRIPTION DRUG MONITORING PROGRAM REVIEWED*: No *COPY OF PRESCRIPTION DRUG MONITORING REPORT IN PATIENT ZULEMA: No Home Medications: Home Meds Vit No.129/Iron/FA [ One Daily Tablet] 1 tab PO DAILY 11/28/16 [History] Ferrous Sulfate [Iron] 325 mg PO DAILY 03/09/17 [History] Acetaminophen [Tylenol] 650 mg PO Q6H PRN tablet 05/09/17 [Rx] Docusate Sodium [Colace] 100 mg PO BID PRN cap 05/09/17 [Rx] Ibuprofen [IJD: Ibuprofen] 800 mg PO Q8H PRN tablet 05/09/17 [Rx] Patient Handouts: Home Care Instructions for Mom - Discharge Summary/Plan Comment DC Time >30 min.: No Discharge Summary/Plan Comment: Discharge to home today in good condition. Return criteria discussed as above. Staffed with Dr. Berrios. Salina Lduwig, PGY3 - Patient Data Vitals - Most Recent: Last Vital Signs Temp 98.9 F 07/09/18 08:00 Pulse 70 07/09/18 08:00 Resp 16 07/09/18 08:00 BP 109/57 L 07/09/18 08:00 Pulse Ox 99 07/08/18 07:56 Weight - Most Recent: 192 lb Med Orders - Current: Current Medications Discontinued Medications Acetaminophen (Tylenol) 650 mg PO Q4H PRN PRN Reason: Pain (Mild 1-3) and fever Last Admin: 07/07/18 20:50 Dose: 650 mg Acetaminophen (Tylenol) 650 mg PO Q6H PRN PRN Reason: mild pain or fever Last Admin: 07/08/18 03:35 Dose: 650 mg Benzocaine/Menthol (Dermoplast Pain Relief [place]) 0 gm TOP Q4H PRN PRN Reason: Perineal comfort measures Last Admin: 07/07/18 20:49 Dose: 1 spray Carboprost Tromethamine (Hemabate Ds) 250 mcg IM ASDIRECTED PRN PRN Reason: HEMORRHAGE Carboprost Tromethamine (Hemabate Ds) 250 mcg IM ASDIRECTED PRN PRN Reason: Excessive vaginal bleeding Docusate Sodium (Colace) 100 mg PO BID PRN PRN Reason: Constipation Last Admin: 07/09/18 08:51 Dose: 100 mg Ephedrine Sulfate (Ephedrine Sulfate) Confirm Administered Dose 50 mg .ROUTE .STK-MED ONE Stop: 07/07/18 10:51 Last Admin: 07/07/18 19:40 Dose: Not Given Ephedrine Sulfate (Ephedrine Sulfate) 100 mg IVPUSH ONETIME ONE Stop: 07/07/18 11:18 Last Admin: 07/07/18 19:41 Dose: Not Given Ephedrine Sulfate (Ephedrine Sulfate) 10 mg IVPUSH ONETIME ONE Stop: 07/07/18 10:01 Last Admin: 07/07/18 10:57 Dose: 10 mg Ephedrine Sulfate (Ephedrine Sulfate) 10 mg IVPUSH ONETIME ONE Stop: 07/07/18 13:31 Last Admin: 07/07/18 13:30 Dose: 10 mg Lactated Ringer's (Ringers, Lactated) 500 mls @ 999 mls/hr IV .BOLUS ONE Stop: 07/07/18 09:16 Last Admin: 07/07/18 09:15 Dose: 999 mls/hr Lactated Ringer's (Ringers, Lactated) 1,000 mls @ 125 mls/hr IV ASDIRECTED CHARLIE Last Admin: 07/07/18 13:46 Dose: 125 mls/hr Oxytocin/Sodium Chloride (Pitocin In Ns 30 Unit/500 Ml) 30 unit in 500 mls @ 2 mls/hr IV TITRATE CHARLIE; Protocol Last Titration: 07/07/18 18:15 Dose: 0 munits/min, 0 mls/hr Tranexamic Acid 1,000 mg/ (Sodium Chloride) 110 mls @ 660 mls/hr IV ONETIME PRN PRN Reason: Bleeding Clindamycin Phosphate 900 mg/ (Sodium Chloride) 106 mls @ 200 mls/hr IV Q8H CHARLIE Last Admin: 07/07/18 19:43 Dose: Not Given Tranexamic Acid 1,000 mg/ (Sodium Chloride) 110 mls @ 660 mls/hr IV ONETIME PRN PRN Reason: Bleeding Ibuprofen (Motrin) 800 mg PO Q8H PRN PRN Reason: Mild Pain or Fever Last Admin: 07/09/18 08:51 Dose: 800 mg Ketorolac Tromethamine (Toradol) 30 mg IVPUSH ONETIME ONE Stop: 07/07/18 14:54 Last Admin: 07/07/18 19:42 Dose: Not Given Lidocaine HCl (Xylocaine-Mpf 1%) 30 ml INJECT ASDIRECTED PRN PRN Reason: Perineal Repair Methylergonovine Maleate (Methergine) 0.2 mg IM ASDIRECTED PRN PRN Reason: Hemorrhage Misoprostol (Cytotec) 800 mcg RECTAL ASDIRECTED PRN PRN Reason: Hemorrhage Misoprostol (Cytotec) 800 mcg RECTAL ONETIME PRN PRN Reason: Hemorrhage Ondansetron HCl (Zofran) 4 mg IV Q4H PRN PRN Reason: Nausea/Vomiting Last Admin: 07/07/18 09:54 Dose: 4 mg Oxytocin (Pitocin) 10 unit IM ONETIME PRN PRN Reason: Bleeding Prenat Multivit/[place]/Iron/Folic Ac ( Plus Iron) 1 each PO DAILY [facility] Last Admin: 07/09/18 08:52 Dose: 1 each Simethicone (Simethicone) 80 mg PO Q4H PRN PRN Reason: Gas Sodium Chloride (Saline Flush) 10 ml FLUSH ASDIRECTED PRN PRN Reason: Keep Vein Open Sodium Chloride (Saline Flush) 10 ml FLUSH ASDIRECTED PRN PRN Reason: Keep Vein Open Zolpidem Tartrate (Ambien) 5 mg PO BEDTIME PRN PRN Reason: Insomnia - Exam General: Reports: Alert, Oriented Neck: Reports: Supple Lungs: Reports: Clear to Auscultation, Normal Respiratory Effort. Denies: Crackles, Rales, Wheezing Cardiovascular: Reports: Regular Rate, Regular Rhythm, No Murmurs GI/Abdominal Exam: Normal Bowel Sounds, Soft, Tender (appropriately) (Female) Exam: Fundal Height (below u) Extremities: Non-Tender, No Pedal Edema Skin: Reports: Warm, Dry. Denies: Rash Psy/Mental Status: Reports: Alert, Normal Affect, Normal Mood
--- NOTE | 2018-07-09 14:59 | PN ---
DATE: 07/09/2018 LOCATION: [facility]. SUBJECTIVE: The patient is day #2 from a vaginal delivery. Mom and baby are both doing well. Lochia is minimal. PHYSICAL EXAMINATION: Vital Signs: She is afebrile. Heart rates 70 to 80. Blood pressure 109 to 116 over 57 to 63. Respiratory rate 16. O2 saturation 100%. Pelvic: Fundus is firm below the umbilicus. Extremities: No tenderness. No edema. LABORATORY DATA: Predelivery hemoglobin was 10.4. She is O positive. Rubella immune. ASSESSMENT AND PLAN: day #2, status post vaginal delivery. Mom and baby are both doing well. We will discharge her to home with followup in 6 weeks. [facility] /[id number]
== END 2018-07-09 12:50 | disposition home or self-care (01) | DRG 807 ==
LOC: DL.OBCHECK 08:26 → DL.OB 08:44 → OBSVTOIN 14:42 → DL.MS 19:54
PROVIDERS: ADMIT Family Medicine; ATTEND Family Medicine
PROC: 10E0XZZ Delivery of Products of Conception, External Approach (ICD-10-PCS; principal; 2018-07-07)
PROC: 10907ZC Drainage of Amniotic Fluid, Therapeutic from Products of Conception, Via Natural or Artificial Opening (ICD-10-PCS; 2018-07-07)
PROC: 3E0R3BZ Introduction of Anesthetic Agent into Spinal Canal, Percutaneous Approach (ICD-10-PCS; 2018-07-07)
DX: O48.0 Post-term pregnancy (principal); O99.02 Anemia complicating childbirth; D64.9 Anemia, unspecified; O71.82 Other specified trauma to perineum and vulva; O99.824 Streptococcus B carrier state complicating childbirth; Z88.1 Allergy status to other antibiotic agents; Z91.048 Other nonmedicinal substance allergy status; Z3A.40 40 weeks gestation of pregnancy; Z37.0 Single live birth
CPT/HCPCS: 36415; 59409; 85027; A9270-GY; J2405; J2590; J3490; J7050; J7120

== ENCOUNTER 2019-11-06 19:46 | Emergency (ER) | payer BC, MEDICAID ==
[2019-11-06 19:58] VITALS: BP 122/80; PULSE 82
[2019-11-06] MEDS ORDERED: Lidocaine 1% with EPINEPHrine 1:100,000 20 ML MDV INJECT ONE (20:43)
--- NOTE | 2019-11-06 21:19 | EDM.PDOC ---
ED HPI GENERAL MEDICAL PROBLEM - General Chief Complaint: Laceration Stated Complaint: LACERATION LIP Time Seen by Provider: 11/06/19 20:15 - History of Present Illness INITIAL COMMENTS - FREE TEXT/NARRATIVE: Playing softball. Went to catch ball and bounced up and hit upper lip above glove. No injury to teeth. Ice to upper lip, 1cm laceration. Upper Lip Pain Score (Numeric/FACES): 4 - Related Data Allergies Allergy/AdvReac Type Severity Reaction Status Date / Time amoxicillin Allergy Hives Verified 11/06/19 19:58 poison angella extract Allergy Cannot Verified 11/06/19 19:58 Remember Past Medical History - Past Health History Medical/Surgical History: Denies Medical/Surgical History HEENT History: Reports: Impaired Vision Gastrointestinal History: Reports: GERD [employer] CLERK History: Reports: Hematologic History: Reports: Anemia Dermatologic History: Reports: Other (See Below) Other Dermatologic History: allergic dermatitis due to poison angella and bacterial skin infection of trunk, suspect MRSA - Infectious Disease History Infectious Disease History: Reports: MRSA Social & Family History - Family History Family Medical History: Noncontributory - Tobacco Use Smoking Status *Q: Never Smoker Second Hand Smoke Exposure: No - Caffeine Use Caffeine Use: Reports: None Other Caffeine Use: occasional - Recreational Drug Use Recreational Drug Use: No - Living Situation & Occupation Living situation: Reports: with Family Occupation: Student ED ROS GENERAL - Review of Systems Review Of Systems: Comprehensive ROS is negative, except as noted in HPI. ED EXAM, SKIN/RASH Exam: See Below Exam Limited By: No Limitations General Appearance: Alert, Anxious, Mild Distress Eye Exam: Bilateral Eye: EOMI Ears: Normal External Exam Nose: Normal Inspection Throat/Mouth: Other (upper lip swollen with 1 cm laceration to mid upper lip) Head: Atraumatic, Normocephalic Neck: Normal Inspection Respiratory/Chest: No Respiratory Distress Cardiovascular: Normal Peripheral Pulses, Regular Rate, Rhythm Neurological: Alert, Oriented, Normal Cognition Skin: Warm, Wound/Incision Location, Skin: Face Associated features: Tenderness ED SKIN PROCEDURES - Laceration/Wound Repair [place] Mouth Appearance: Superficial, Other (1cm laceration to upper mid lip) Anesthetic Type: Local Local Anesthesia - Lidocaine (Xylocaine): 1% with EPI Local Anesthetic Volume: 1cc Skin Prep: Chlorhexidine (Hibiciens), Saline Closed with: Sutures Lac/Wound length In cm: 1 Suture Size: 5-0 Suture Type: Nylon, Interrupted Sterile Dressing Applied: None Tetanus Status Addressed: Yes Complications: No Course - Vital Signs Last Recorded V/S: Last Vital Signs Temp 97 F 11/06/19 19:47 Pulse 82 11/06/19 19:47 Resp 14 11/06/19 19:47 BP 122/80 11/06/19 19:47 Pulse Ox 100 11/06/19 19:47 - Orders/Labs/Meds Meds: Medications Discontinued Medications Generic Name Dose Route Start Last Admin Trade Name Darren PRN Reason Stop Dose Admin Lidocaine/Epinephrine 20 ml 11/06/19 20:43 11/06/19 21:00 Xylocaine 1% With Epinephrine 1:100,000 INJECT 11/06/19 20:44 20 ml ONETIME ONE Administration Departure - Departure Time of Disposition: 21:17 Disposition: Home, Self-Care 01 Condition: Good Clinical Impression: Laceration of lip Qualifiers: Encounter type: initial encounter Qualified Code(s): S01.511A - Laceration without foreign body of lip, initial encounter - Discharge Information *PRESCRIPTION DRUG MONITORING PROGRAM REVIEWED*: No *COPY OF PRESCRIPTION DRUG MONITORING REPORT IN PATIENT ZULEMA: No Instructions: Sutures, [place], or Adhesive Wound Closure, [id number] Forms: ED Department Discharge Additional Instructions: keep clean and dry soft diet good oral hygeine ice to lip tonight sutures out 7-10 days in clinic alternate tylenol and ibuprofen for discomfort Sepsis Event Note (ED) - Evaluation Sepsis Screening Result: No Definite Risk - Focused Exam Vital Signs: Vital Signs Temp Pulse Resp BP Pulse Ox 11/06/19 19:47 97 F 82 14 122/80 100
== END 2019-11-06 21:22 | disposition home or self-care (01) ==
LOC: DL.ED 19:46
DX: S01.511A Laceration without foreign body of lip, initial encounter (principal); Z91.048 Other nonmedicinal substance allergy status
CPT/HCPCS: 12011; 99282

== ENCOUNTER 2021-01-04 20:22 | Emergency (ER) | payer BC ==
[2021-01-04 21:07] VITALS: BP 132/91; PULSE 95
--- NOTE | 2021-01-04 21:40 | EDM.PDOC ---
ED HPI GENERAL MEDICAL PROBLEM - General Chief Complaint: Lower Extremity Injury/Pain Stated Complaint: INJURED ANKLE Time Seen by Provider: 01/04/21 21:30 Source of Information: Reports: Patient History Limitations: Reports: No Limitations - History of Present Illness INITIAL COMMENTS - FREE TEXT/NARRATIVE: Pt is here for left ankle injury that occurred yesterday. She was jumping in a foam pit when she landed on her left ankle and felt it pop. She has had difficulty walking on it since that time. She notes it hurts more to walk or stand on the foot. No numbness or tingling of the foot. Never injured it before. She is worried about being at work as she is on her feet all day. 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: Endocrine/Metabolic History: Reports: Obesity/BMI 30+ Hematologic History: Reports: Anemia Dermatologic History: Reports: Other (See Below) Other Dermatologic History: allergic dermatitis due to poison angella and bacterial skin infection of trunk, suspect MRSA - Infectious Disease History Infectious Disease History: Reports: MRSA Social & Family History - Family History Family Medical History: No Pertinent Family History - Tobacco Use Tobacco Use Status *Q: Never Tobacco User Second Hand Smoke Exposure: No - Caffeine Use Caffeine Use: Reports: None Other Caffeine Use: occasional - Recreational Drug Use Recreational Drug Use: No - Living Situation & Occupation Living situation: Reports: with Family Occupation: Student Review of Systems - Review of Systems Review Of Systems: Comprehensive ROS is negative, except as noted in HPI. ED EXAM, GENERAL - Physical Exam Exam: See Below Exam Limited By: No Limitations General Appearance: Alert, WD/WN, No Apparent Distress Eye Exam: Bilateral Eye: Normal Inspection Ears: Normal External Exam Throat/Mouth: Normal Voice, No Airway Compromise Head: Atraumatic, Normocephalic Neck: Supple, Non-Tender Respiratory/Chest: No Respiratory Distress, Lungs Clear, Normal Breath Sounds, No Accessory Muscle Use, Chest Non-Tender Cardiovascular: Normal Peripheral Pulses, Regular Rate, Rhythm, No Murmur GI/Abdominal: Soft, Non-Tender (Female) Exam: Deferred Rectal (Female) Exam: Deferred Extremities: Normal Capillary Refill, Joint Swelling (left ankle, negative [place] ankle), Limited Range of Motion (due to pain of left ankle) Neurological: Alert, Oriented, Normal Cognition, No Motor/Sensory Deficits Psychiatric: Normal Affect, Normal Mood Skin Exam: Warm, Dry, Intact, Normal Color Course - Vital Signs Last Recorded V/S: Last Vital Signs Temp 99.6 F 01/04/21 20:58 Pulse 95 01/04/21 20:58 Resp 18 01/04/21 20:58 BP 132/91 H 01/04/21 20:58 Pulse Ox 96 01/04/21 20:58 - Orders/Labs/Meds Orders: Active Orders 24 hr Category Date Time Status Ankle Min 3V Lt [CR] Urgent Exams 01/04/21 21:07 Taken Departure - Departure Time of Disposition: 21:40 Disposition: Home, Self-Care 01 Condition: Good Clinical Impression: Ankle sprain Qualifiers: Encounter type: initial encounter Involved ligament of ankle: anterior talofibular ligament Laterality: left Qualified Code(s): S93.492A - Sprain of other ligament of left ankle, initial encounter - Discharge Information *PRESCRIPTION DRUG MONITORING PROGRAM REVIEWED*: Not Applicable *COPY OF PRESCRIPTION DRUG MONITORING REPORT IN PATIENT ZULEMA: Not Applicable Prescriptions: Miscellaneous Medical Supply [DME for Prescription] 1 each .XX ASDIRECTED #1 each Instructions: Ankle Sprain With Phase I Rehab-SportsMed Additional Instructions: Ankle brace provided Over the counter medications as needed for pain relief Ice therapy as needed for pain relief Keep the foot elevated when not working Follow up with your primary care provider in 3-5 days Sepsis Event Note (ED) - Focused Exam Vital Signs: Vital Signs Temp Pulse Resp BP Pulse Ox 01/04/21 20:58 99.6 F 95 18 132/91 H 96 - My Orders Last 24 Hours: My Active Orders 01/04/21 21:07 Ankle Min 3V Lt [CR] Urgent - Assessment/Plan Last 24 Hours: My Active Orders 01/04/21 21:07 Ankle Min 3V Lt [CR] Urgent
--- NOTE | 2021-01-04 21:58 | CR ---
PROCEDURE INFORMATION: Exam: XR Left Ankle Exam date and time: 01/04/2021 9:21 PM Age: 20 years old Clinical indication: Other: Landed wrong while jomping; Additional info: Pain TECHNIQUE: Imaging protocol: XR Left ankle. Views: 3 or more views. COMPARISON: No relevant prior studies available. FINDINGS: Bones/joints: Normal. Soft tissues: Normal. IMPRESSION: No acute osseous findings.
== END 2021-01-04 22:20 | disposition home or self-care (01) ==
LOC: DL.ED 20:22
DX: S93.492A Sprain of other ligament of left ankle, initial encounter (principal); E66.9 Obesity, unspecified; Z68.36 Body mass index [BMI] 36.0-36.9, adult; Z88.0 Allergy status to penicillin; Z91.048 Other nonmedicinal substance allergy status; X50.9XXA Other and unspecified overexertion or strenuous movements or postures, initial encounter; Y93.39 Activity, other involving climbing, rappelling and jumping off
CPT/HCPCS: 73610-LT; 99283-25

== ENCOUNTER 2023-01-07 03:40 | Emergency (ER) | payer SELFPAY ==
[2023-01-07 03:59] VITALS: BP 129/88; PULSE 102
[2023-01-07] MEDS ORDERED: Ketorolac 30 MG/ML SDV IM ONE (04:54)
[2023-01-07] MEDS ORDERED: Bacitracin Oint 1 GM U/D Packet TOP ONE (06:29)
[2023-01-07] MEDS ORDERED: Diphtheria,Pertussis(Acell),Tetanus Vaccine 0.5 ML Syringe IM ONE (06:29)
[2023-01-07] MEDS ORDERED: Lidocaine 1% 5 ML VIAL INJECT ONE (06:29)
[2023-01-07] MEDS ORDERED: Take Home: Acetaminophen/oxyCODONE 325-5 MG, 5 Tab Pack PO ONE (07:30)
== END 2023-01-07 08:10 | disposition home or self-care (01) ==
LOC: DL.ED 03:40
DX: S91.311A Laceration without foreign body, right foot, initial encounter (principal); S93.492A Sprain of other ligament of left ankle, initial encounter; E66.9 Obesity, unspecified; Z68.30 Body mass index [BMI] 30.0-30.9, adult; Z88.0 Allergy status to penicillin; Z91.048 Other nonmedicinal substance allergy status; Z23 Encounter for immunization; Y04.2XXA Assault by strike against or bumped into by another person, initial encounter
CPT/HCPCS: 12004; 70450; 72125; 73610; 90471; 90715; 96372; 99283; 99284; A9270; J1885; J3490